=== PATIENT | female | born 1965 | race American Indian/Alaskan Native ===

== ENCOUNTER 2016-12-06 23:29 | Emergency (ER) | payer OTHER ==
[2016-12-06 23:29] VITALS: BMI 36.6
[2016-12-07] MEDS ORDERED: Sodium Chloride 0.9% 1,000 ML IV ONE (00:02)
[2016-12-07] MEDS ORDERED: Morphine 4 MG/ML VIAL IV STA (00:02)
[2016-12-07] MEDS ORDERED: Albuterol-Ipratrop 3 mg / 0.5 (3 ml) UD INH STA (00:03)
[2016-12-07 00:22] LABS: BASO % 0.8 % (0.0-2.0); EOS # 0.1 K/uL (0.0-0.7); EOS % 1.5 % (0.0-4.0); HEMOGLOBIN 12.6 g/dL (11.0-16.0); LYMPH # 1.1 K/uL (1.0-4.3); LYMPH % 19.1 % (20.0-40.0); MEAN CELL VOLUME 89.7 fL (81.0-99.0); MEAN CORPUSCULAR HGB CONC 33.5 g/dL (33.0-37.0); MEAN PLATELET VOLUME 7.6 fL (7.2-11.7); MONO # 0.3 K/uL (0.0-0.8); NEUT # 4.4 K/uL (1.8-7.0); NEUT % 73.6 % (50.0-75.0); RBC 4.19 Mil/uL (3.80-5.20); RED CELL DISTRIBUTION WIDTH 15.4 % (11.5-14.5)
[2016-12-07] MEDS ORDERED: Sodium Chloride 0.9% 1,000 ML ONE (00:27)
[2016-12-07] MEDS ORDERED: Morphine 4 MG/ML VIAL ONE ×2 (00:27→00:30)
[2016-12-07 00:40] LABS: ALB/GLOB RATIO 1.3 (1.0-2.1); ALBUMIN 3.5 g/dL (3.5-5.0); ALT/SGPT 32 U/L (9-52); AST/SGOT 19 U/L (14-36); BLOOD UREA NITROGEN 11 mg/dL (7-17); CALCIUM 8.5 mg/dl (8.6-10.4); GFR AFRICAN-AMERICAN > 60; GFR NON-AFRICAN AMERICAN > 60
--- NOTE | 2016-12-07 01:51 | C.PDOC ---
History Of Present Illness A 51 y/o F c/o right sided chest pain for the past 3 days. Pt had a lobectomy done to the right lung area. Pain has been worse over the past few days and worsens with breathing and movement. Denies fever, chills, SOB, nausea, vomiting , diaphoresis, lightheadedness, abdominal pain, or any other complaints. Time Seen by Provider: 12/07/16 01:49 Chief Complaint (Nursing): Chest Pain History Per: Patient History/Exam Limitations: no limitations Onset/Duration Of Symptoms: Days Current Symptoms Are (Timing): Still Present Severity: Mild Quality: "Pain" Exacerbating Factors: Movement, Deep Breathing Recent travel outside of the [place]: No Additional History Per: Patient Past Medical History Reviewed: Historical Data, Nursing Documentation, Vital Signs Vital Signs: Last Vital Signs Temp 97.9 F 12/06/16 23:40 Pulse 85 12/07/16 01:20 Resp 20 12/07/16 01:20 BP 134/69 12/07/16 01:20 Pulse Ox 121 H 12/07/16 01:58 - Medical History PMH: Arthritis, Asthma, Bipolar Disorder, COPD, Emphysema, Fractures (r ankle casted), HTN, Pneumonia, Pulmonary Embolism, Schizophrenia, Sleep Apnea (no c pap) Denies: Chronic Kidney Disease Surgical History: - [facility] Procedures BEAM RADIATION OF CHEST USING PHOTONS 1 - 10 MEV (05/03/16) BEAM RADIATION OF LUNG USING PHOTONS 1 - 10 MEV (04/16/16) C.A.T. SCAN OF THORAX (07/20/14) CLOSED [PERCUTANEOUS] [NEEDLE] BIOPSY OF LUNG (07/20/14) ENDOSCOPIC BRONCHIAL BX (08/23/14) EXCISION OF R UP LEG SUBCU/FASCIA, OPEN APPROACH (05/03/16) INJECT ANTICOAGULANT (02/09/15) INJECT/INFUSE NEC (01/23/15) INSERTION OF TOTALLY IMPLANTABLE VASC ACCESS DEVIC (11/15/14) INTRODUCE OF OTH THERAP SUBST INTO RESP TRACT, VIA OPENING (06/12/16) LAPAROSCOPIC ROBOTIC ASSISTED PROCEDURE (09/21/14) LYMPHATIC STRUCT BIOPSY (09/21/14) NEBULIZER THERAPY (02/09/15) THORACOSCOPIC LOBECTOMY OF LUNG (09/21/14) THORAX SFT TISS XRAY NEC (11/15/14) Family History: States: Unknown Family Hx - Social History Hx Tobacco Use: No Hx Alcohol Use: No Hx Substance Use: No - Immunization History Hx Tetanus Toxoid Vaccination: No Hx Influenza Vaccination: Yes Hx Pneumococcal Vaccination: Yes Review Of Systems Except As Marked, All Systems Reviewed And Found Negative. Constitutional: Negative for: Fever, Chills, Sweats Cardiovascular: Positive for: Chest Pain. Negative for: Light Headedness Respiratory: Negative for: Shortness of Breath Gastrointestinal: Negative for: Nausea, Vomiting, Abdominal Pain Physical Exam - Physical Exam Appears: Non-toxic, In Acute Distress (Due to pain) Skin: Warm, Dry Head: Atraumatic, Normacephalic Cardiovascular: Rhythm Regular Respiratory: Decreased Breath Sounds (Right lower lung), No Accessory Muscle Use , No Rales, No Rhonchi, No Wheezing Gastrointestinal/Abdominal: Soft, No Tenderness Back: No CVA Tenderness Extremity: Normal ROM, No Tenderness, Capillary Refill (<2secs) Neurological/Psych: Oriented x3, Normal Speech, Normal Cognition ED Course And Treatment - Laboratory Results Result Diagrams: 12/07/16 00:18 12/07/16 00:18 O2 Sat by Pulse Oximetry: 121 (Nebulizer treatment) Pulse Ox Interpretation: Normal Medical Decision Making Medical Decision Making: Impression: A 51 y/o F c/o right sided chest pain for the past 3 days. Plans: -CT chest w/o -EKG -Albuterol -Morphine -IV fluids -Nebulizer treatment Disposition Counseled Patient/Family Regarding: Diagnosis - Disposition Referrals: Efrain Barrera MD [Staff Provider] - Disposition: HOME/ ROUTINE Disposition Time: 03:05 Condition: IMPROVED Instructions: Thoracic Pain (ED) - POA Present On Arrival: None - Clinical Impression Clinical Impression: Thoracic back pain - Scribe Statement The provider has reviewed the documentation as recorded by the Scribe Aditi Allred All medical record entries made by the Scribe were at my direction and personally dictated by me. I have reviewed the chart and agree that the record accurately reflects my personal performance of the history, physical exam, medical decision making, and the department course for this patient. I have also personally directed, reviewed, and agree with the discharge instructions and disposition.
--- NOTE | 2016-12-07 10:08 | CT ---
PROCEDURE: CT Chest without contrast HISTORY: chest pain. History of lung cancer on the right side COMPARISON: None. TECHNIQUE: Contiguous axial images were obtained through the chest without intravenous contrast enhancement. Sagittal and coronal reconstructions were performed. Radiation dose (DLP): 860.69 mGy-cm. This CT exam was performed using one or more of the following dose reduction techniques: Automated exposure control, adjustment of the mA and/or kV according to patient size, and/or use of iterative reconstruction technique. FINDINGS: LUNGS: Reticular opacities seen at the medial aspect of the right lung likely represent post treatment/fibrotic changes associated with focal bronchiectasis. Moderate emphysematous changes more prominent at the upper lobes MEDIASTINUM: Unremarkable thoracic aorta. No aneurysm. Normal sized heart. The main pulmonary artery is mildly enlarged. No lymphadenopathy. PLEURA: No pleural fluid. No pneumothorax. BONES: No fracture. No destructive lesion. UPPER ABDOMEN: Grossly unremarkable. OTHER FINDINGS: None. IMPRESSION: Focal reticular and reticulonodular opacities at the medial aspect of the right lung associated with bronchiectasis likely represent fibrotic and posttraumatic changes. Correlation with prior study is suggested. If clinically warranted interval follow-up reassessment or further evaluation by PET-CT may be obtained. [id number] emphysema. Preliminary report was submitted by [facility] Rad[facility].
[2016-12-07 12:19] VITALS: BP 122/65; PULSE 75; RESP 18; TEMP 97.9; O2SAT 99
--- NOTE | 2016-12-09 12:45 | CARD ---
APPROVED REPORT EKG Measurement Heart [id number] [place] [id number] [id number] <Conclusion> Sinus tachycardia Otherwise normal ECG
== END 2016-12-07 03:23 | disposition home or self-care (01) ==
LOC: C.ER 23:29
DX: M54.6 Pain in thoracic spine (principal)
CPT/HCPCS: 71250; 80053; 84484; 85025; 85378; 93005; 94640; 96374; 96375; 99284; J1170; J2270; J7040

== ENCOUNTER 2016-12-08 12:25 | Emergency (ER) | payer OTHER ==
[2016-12-08 12:25] VITALS: BMI 36.6
[2016-12-08 12:50] VITALS: BP 91/59; PULSE 96; RESP 24; TEMP 98; O2SAT 100
[2016-12-08] MEDS ORDERED: Oxycodone/Acetaminophen 5/325 mg Tab PO STA (13:07)
[2016-12-08] MEDS ORDERED: Oxycodone/Acetaminophen 5/325 mg Tab ONE (13:17)
--- NOTE | 2016-12-08 13:21 | C.PDOC ---
History Of Present Illness 51 y/o female presents to ED seeking narcotics for her chronic right posterior thoracic back pain. Patient claims her pain is related to right lobectomy for lung cancer, and states she takes Dilaudid, and Percocet for her pain. Otherwise , denies any fever, chills, shortness of breath, nausea, vomiting, abdominal pain, or any other complaints at this time. Time Seen by Provider: 12/08/16 12:58 Chief Complaint (Nursing): Chest Pain History Per: Patient History/Exam Limitations: no limitations Onset/Duration Of Symptoms: Days Current Symptoms Are (Timing): Still Present Recent travel outside of the [place]: No Additional History Per: Patient Past Medical History Reviewed: Historical Data, Nursing Documentation, Vital Signs Vital Signs: Last Vital Signs Temp 98.0 F 12/08/16 12:36 Pulse 96 H 12/08/16 12:36 Resp 24 12/08/16 12:36 BP 91/59 L 12/08/16 12:36 Pulse Ox 100 12/08/16 15:06 - Medical History PMH: Arthritis, Asthma, Bipolar Disorder, COPD, Emphysema, Fractures (r ankle casted), HTN, Pneumonia, Pulmonary Embolism, Schizophrenia, Sleep Apnea (no c pap) Denies: Chronic Kidney Disease Surgical History: - [facility] Procedures BEAM RADIATION OF CHEST USING PHOTONS 1 - 10 MEV (05/03/16) BEAM RADIATION OF LUNG USING PHOTONS 1 - 10 MEV (04/16/16) C.A.T. SCAN OF THORAX (07/20/14) CLOSED [PERCUTANEOUS] [NEEDLE] BIOPSY OF LUNG (07/20/14) ENDOSCOPIC BRONCHIAL BX (08/23/14) EXCISION OF R UP LEG SUBCU/FASCIA, OPEN APPROACH (05/03/16) INJECT ANTICOAGULANT (02/09/15) INJECT/INFUSE NEC (01/23/15) INSERTION OF TOTALLY IMPLANTABLE VASC ACCESS DEVIC (11/15/14) INTRODUCE OF OTH THERAP SUBST INTO RESP TRACT, VIA OPENING (06/12/16) LAPAROSCOPIC ROBOTIC ASSISTED PROCEDURE (09/21/14) LYMPHATIC STRUCT BIOPSY (09/21/14) NEBULIZER THERAPY (02/09/15) THORACOSCOPIC LOBECTOMY OF LUNG (09/21/14) THORAX SFT TISS XRAY NEC (11/15/14) Family History: States: Unknown Family Hx - Social History Hx Tobacco Use: No Hx Alcohol Use: No Hx Substance Use: No - Immunization History Hx Tetanus Toxoid Vaccination: Yes Hx Influenza Vaccination: Yes Hx Pneumococcal Vaccination: Yes Review Of Systems Except As Marked, All Systems Reviewed And Found Negative. Constitutional: Negative for: Fever, Chills Cardiovascular: Positive for: Chest Pain (right ). Negative for: Palpitations, Edema, Light Headedness Respiratory: Negative for: Cough, Shortness of Breath Gastrointestinal: Negative for: Nausea, Vomiting, Abdominal Pain Musculoskeletal: Positive for: Back Pain (right upper) Neurological: Negative for: Weakness, Numbness, Headache, Dizziness Physical Exam - Physical Exam Appears: Non-toxic, No Acute Distress, Other (Argumentative, threatening, illogical) Skin: Normal Color, Warm, Dry Head: Atraumatic, Normacephalic Eye(s): bilateral: Other (pinpoint pupils) Neck: Normal ROM, Supple Chest: Symmetrical, No Other (no scars or evidence consistent with lobectomy) Cardiovascular: Rhythm Regular Respiratory: Normal Breath Sounds, No Rales, No Rhonchi, No Wheezing Gastrointestinal/Abdominal: Soft, No Tenderness Back: No Vertebral Tenderness, Paraspinal Tenderness (right thoracic) Neurological/Psych: Oriented x3, Normal Speech ED Course And Treatment O2 Sat by Pulse Oximetry: 100 Pulse Ox Interpretation: Normal Medical Decision Making Medical Decision Making: Chronic R back pain is digitally reproducable, seems unrelated to R lobectomy for ? lung CA, performed @ unknown time. no zoster, no incisional wound nor cellulitis found nor local infection noted. 12/06/16: "normal w/u" including labs, CT @ [place] and our ED later that same day. Pt does not allow proper exam of R thorax for ? reason. Pinpoint pupils suggest current narcotics use, but pt denies. pt pending Chronic Pain eval/treatment but does not know who or when. h/o bipolar disorder, heroine and cocaine addiction and refused refills by PMD and Heme/Onc Seen and evaled as drug seeking behavior @ [place] ED 12/06, (demanding Dilaudid ) pt eloped (no apparent pain) [place] [facility] reviewed, 10 prescribers for 28 prescriptions in a wide geographical distribution and offers poor follow-up and ? drug seeking behavior- required to be reported to [place] [employer]. Though in "severe" pain, pt argumentative, letigious, manipulative to try to get prescribed narcotics from dealing with our Social workers, demanding to have another ER doctor, always seemingly in no apparent R thorax pain. Extensive attempts to explain ED unable to refill chronic pain meds, with poor insight. Pt left ED refusing Percocet offered, foul mouthed and verbally abusive, yelling loudly, apparently minimal R chest discomfort. Above comments paraphrased and referred to [facility] by email for review, per current protocol Disposition Doctor Will See Patient In The: Office Counseled Patient/Family Regarding: Studies Performed, Diagnosis - Disposition Referrals: Rebecca Bravo MD [Non-Staff] - Disposition: HOME/ ROUTINE Disposition Time: 13:21 Condition: GOOD Additional Instructions: seek chronic pain eval as already scheduled The ER may NOT refill chronic controlled pain meds Your atypical drug prescribing practices will be reported to [facility] of Consumer Affairs. Instructions: Chronic Pain (ED), Narcotic Abuse (ED), Bipolar Disorder (ED) - Clinical Impression Clinical Impression: Chronic pain, Bipolar disorder, Drug-seeking behavior - Scribe Statement The provider has reviewed the documentation as recorded by the Scribe Brodie Del Angel All medical record entries made by the Scribe were at my direction and personally dictated by me. I have reviewed the chart and agree that the record accurately reflects my personal performance of the history, physical exam, medical decision making, and the department course for this patient. I have also personally directed, reviewed, and agree with the discharge instructions and disposition.
--- NOTE | 2016-12-09 12:44 | CARD ---
APPROVED REPORT EKG Measurement Heart [id number] 134P71 [id number] <Conclusion> Normal sinus rhythm Normal ECG
== END 2016-12-08 13:30 | disposition home or self-care (01) ==
LOC: C.ER 12:25
DX: G89.29 Other chronic pain (principal); F31.9 Bipolar disorder, unspecified; Z76.5 Malingerer [conscious simulation]

== ENCOUNTER 2017-01-07 14:18 | Emergency (ER) | payer MEDICAID, OTHER ==
[2017-01-07 14:19] VITALS: BMI 36.9
[2017-01-07 14:32] VITALS: TEMP 98.2
--- NOTE | 2017-01-07 15:07 | C.PDOC ---
History Of Present Illness Patient presents to ED c/o chronic right sided chest pain (x2 yrs, after lobectomy), and recently worsening left sided chest pain. Patient states she has h/o lung CA s/p lobectomy (2014) by Dr. Cruz, with chemo. She also state she was recently diagnosed with left sided PE x2, currently on Coumadin. She denies fever, cough, abdominal pain, SOB, and admits this pain is same as previous pain, and that she has previously taking narcotic pain medication. She states her PMD Dr. Mccain and Hem/Onc Dr. Barrera will not give her pain medication anymore. Patient has made appointment with pain management Dr. James , but states it is only in mid January. Patient has appointment with Dr. Barrera tomorrow, states she was told she may also have malignancy in her esophagus. Time Seen by Provider: 01/07/17 14:33 Chief Complaint (Nursing): Chest Pain History Per: Patient History/Exam Limitations: no limitations Onset/Duration Of Symptoms: Persistent Current Symptoms Are (Timing): Still Present Severity: Moderate Quality: Sharp Exacerbating Factors: Movement, Deep Breathing Past Medical History Reviewed: Historical Data, Nursing Documentation, Vital Signs Vital Signs: Last Vital Signs Temp 98.2 F 01/07/17 14:28 Pulse 79 01/07/17 17:09 Resp 16 01/07/17 17:09 BP 124/95 H 01/07/17 17:09 Pulse Ox 100 01/07/17 17:12 - Medical History PMH: Arthritis, Asthma, Bipolar Disorder, COPD, Emphysema, Fractures (r ankle casted), HTN, Malignancy (lung CA s/op lobectomy and chemo (2014)), Pneumonia, Pulmonary Embolism, Schizophrenia, Sleep Apnea (no c pap) Surgical History: Other Surgeries: right sided lobectomy - [facility] Procedures BEAM RADIATION OF CHEST USING PHOTONS 1 - 10 MEV (05/03/16) BEAM RADIATION OF LUNG USING PHOTONS 1 - 10 MEV (04/16/16) C.A.T. SCAN OF THORAX (07/20/14) CLOSED [PERCUTANEOUS] [NEEDLE] BIOPSY OF LUNG (07/20/14) ENDOSCOPIC BRONCHIAL BX (08/23/14) EXCISION OF R UP LEG SUBCU/FASCIA, OPEN APPROACH (05/03/16) INJECT ANTICOAGULANT (02/09/15) INJECT/INFUSE NEC (01/23/15) INSERTION OF TOTALLY IMPLANTABLE VASC ACCESS DEVIC (11/15/14) INTRODUCE OF OTH THERAP SUBST INTO RESP TRACT, VIA OPENING (06/12/16) LAPAROSCOPIC ROBOTIC ASSISTED PROCEDURE (09/21/14) LYMPHATIC STRUCT BIOPSY (09/21/14) NEBULIZER THERAPY (02/09/15) THORACOSCOPIC LOBECTOMY OF LUNG (09/21/14) THORAX SFT TISS XRAY NEC (11/15/14) Family History: States: No Known Family Hx - Social History Hx Tobacco Use: No Hx Alcohol Use: No Hx Substance Use: No - Immunization History Hx Tetanus Toxoid Vaccination: Yes Hx Influenza Vaccination: Yes Hx Pneumococcal Vaccination: Yes Review Of Systems Except As Marked, All Systems Reviewed And Found Negative. Constitutional: Negative for: Fever, Chills Cardiovascular: Positive for: Chest Pain. Negative for: Palpitations Respiratory: Negative for: Cough, Shortness of Breath Gastrointestinal: Negative for: Nausea, Vomiting, Abdominal Pain Skin: Negative for: Rash Physical Exam - Physical Exam Appears: Non-toxic, In Acute Distress (in moderate pain, anxious appearing ) Skin: Warm, Dry, No Rash Oral Mucosa: Moist Chest: Symmetrical, Tenderness (right sided lateral chest TTP, without rashes/ erythema) Cardiovascular: Rhythm Regular Respiratory: Normal Breath Sounds, No Rales, No Rhonchi, No Wheezing Gastrointestinal/Abdominal: Normal Exam, Bowel Sounds, Soft, No Tenderness, Other (obese) Extremity: Normal ROM, No Pedal Edema, No Calf Tenderness ED Course And Treatment - Laboratory Results Result Diagrams: 01/07/17 15:16 01/07/17 15:16 ECG: Interpreted By Me, Viewed By Me (NSR 94 bpm, normal axis, no acute ST/T wave changes) ECG Interpretation: Normal O2 Sat by Pulse Oximetry: 100 (RA) Pulse Ox Interpretation: Normal - Radiology CXR: Interpreted by Me, Viewed By Me CXR Interpretation: Yes: No Acute Disease. No: Infiltrates Progress Note: Blood work, CXR, EKG ordered and reviewed. Patient given IV morphine. Will discuss with PMD. Reevaluation Time: 17:10 Reassessment Condition: Improved (On reassessment, patient states she is feeling better. Explained to patient that I will give her Rx for pain medication, however she needs to obtain future pain meds/narcotics from pain managment and will not be getting them from the ER in the future. Patient has scheduled appt with Dr. Barrera tomorrow, which she was instructed to keep. She understands she should return to ER if symptoms worsen.) - Physician Consult Information Physician Contacted: Efrain Barrera Outcome Of Conversation: Dicussed patient with Dr. Barrera, she is well known to him. Patient has h/o chronic pain, used to get MS contin from him however he now does not give out narcotics and was reffered to pain management. She recently had (+) mediastinal LNs for lung CA, has scheduled appointment with him in the office tomorrow. He states she has known h/o PE diagnosed approx 1 year ago, and that she has been on Coumadin for this, however repeated has low INR - he suspects due to Coumadin noncompliance. As per him, patient also apparently in [facility] earlier today with same symptoms. Medical Decision Making Medical Decision Makin12/30/2016 1 12/29/2016 OXYCODONE HCL 30 MG TABLET 12.0 3 JA [facility] [id number] CAREP ([id number]) 0 180.0 [place] 12/23/2016 1 12/21/2016 OXYCODONE HCL 30 MG TABLET 10.0 5 PE KOC [id number] CAREP ([id number]) 0 90.0 [place] 12/18/2016 1 12/18/2016 ZOLPIDEM TARTRATE 5 MG TABLET 15.0 15 MA SELENA [id number] CAREP ([id number]) 0 [place] 12/09/2016 1 12/08/2016 OXYCODONE HCL 30 MG TABLET 20.0 5 SA ACH [id number] CAREP ([id number]) 0 180.0 [place] 12/02/2016 1 12/01/2016 OXYCODONE HCL 30 MG TABLET 20.0 4 MA DEL [id number] CAREP ([id number]) 0 225.0 [place] 11/15/2016 1 11/11/2016 OXYCODONE HCL 10 MG TABLET 120.0 30 SA PAR [id number] CAREP ([id number]) 0 60.0 [place] 11/08/2016 1 11/08/2016 OXYCODONE HCL 30 MG TABLET 18.0 5 YO POLLO [id number] CAREP ([id number]) 0 162.0 [place] 10/25/2016 1 10/02/2016 PROMETHAZINE-CODEINE SYRUP 240.0 12 MA SELENA [id number] CAREP ([id number]) 1 6.0 [place] 10/25/2016 1 10/17/2016 OXYCODONE HCL 15 MG TABLET 20.0 5 SA ACH [id number] CAREP ([id number]) 0 90.0 [place] 10/02/2016 1 10/02/2016 PROMETHAZINE-CODEINE SYRUP 240.0 12 MA SELENA [id number] CAREP ([id number]) 0 6.0 Private [place] 09/27/2016 1 09/19/2016 OXYCODONE HCL 15 MG TABLET 120.0 30 AD EMILIA [id number] CAREP ([id number]) 0 90.0 [place] 08/28/2016 1 08/27/2016 OXYCODONE HCL 15 MG TABLET 90.0 30 MA BURAK [id number] CAREP ([id number]) 0 67.5 [place] 07/18/2016 1 07/18/2016 OXYCODONE HCL 30 MG TABLET 120.0 20 MA SLEENA [id number] CAREP ([id number]) 0 270.0 [place] 07/03/2016 1 03/28/2016 PROMETHAZINE-CODEINE SYRUP 240.0 10 MA SELENA [id number] CAREP ([id number]) 3 7.2 [place] 06/20/2016 1 06/20/2016 OXYCODONE HCL 30 MG TABLET 120.0 20 MA SELENA [id number] CAREP ([id number]) 0 270.0 [place] 06/06/2016 1 03/28/2016 PROMETHAZINE-CODEINE SYRUP 240.0 10 MA SELENA [id number] CAREP ([id number]) 2 7.2 [place] 06/06/2016 1 06/06/2016 OXYCODONE HCL 30 MG TABLET 80.0 14 MA SELENA [id number] CAREP ([id number]) 0 257.143 Comm [place] Disposition Counseled Patient/Family Regarding: Studies Performed, Diagnosis, Need For Followup, Rx Given - Disposition Referrals: Paty Mccain [Medical Doctor] - Efrain Barrera MD [Staff Provider] - Disposition: HOME/ ROUTINE Disposition Time: 17:10 Condition: STABLE Additional Instructions: FOLLOW UP WITH DR BARRERA IN THE OFFICE TOMORROW USE PAIN MEDICATION NEEDED. IN THE FUTURE YOU NEED TO OBTAIN YOUR PAIN MEDICATION FROM PAIN MANAGEMENT OR PRIVATE DOCTOR PER OUR PAIN POLICY TAKE YOUR COUMADIN DAILY INSTRUCTED RETURN TO ER IF SYMPTOMS WORSEN Prescriptions: oxyCODONE/Acetaminophen [Percocet 5/325 mg Tab] 1 tab PO QID PRN #12 tab PRN Reason: Pain Instructions: Chronic Pain (ED), Chest Wall Pain (ED) Forms: Cody (Korean) Print Language: BOLIVIAN - POA Present On Arrival: None - Clinical Impression Clinical Impression: Chest pain, non-cardiac, Chronic pain, Chronic pulmonary embolism
[2017-01-07 15:24] LABS: BASO # 0.1 K/uL (0.0-0.2); BASO % 1.3 % (0.0-2.0); EOS # 0.1 K/uL (0.0-0.7); EOS % 2.4 % (0.0-4.0); LYMPH # 1.1 K/uL (1.0-4.3); MEAN CORPUSCULAR HEMOGLOBIN 29.8 pg (27.0-31.0)
[2017-01-07] MEDS ORDERED: Morphine 4 MG/ML VIAL ONE (15:24)
[2017-01-07 15:31] LABS: HEMATOCRIT 38.4 % (34.0-47.0); LYMPH % 25.8 % (20.0-40.0); MEAN CORPUSCULAR HGB CONC 34.2 g/dL (33.0-37.0); MEAN PLATELET VOLUME 7.1 fL (7.2-11.7); MONO # 0.4 K/uL (0.0-0.8); MONO % 9.4 % (0.0-10.0); NRBC % 0.2 % (0.0-2.0); RED CELL DISTRIBUTION WIDTH 14.4 % (11.5-14.5); WHITE BLOOD COUNT 4.1 K/uL (4.8-10.8)
[2017-01-07 15:32] LABS: CHLORIDE 106 mmol/L (98-107); INR 1.5; POTASSIUM 3.5 mmol/L (3.6-5.2); SODIUM 142 mmol/L (132-148)
[2017-01-07 15:34] LABS: AST/SGOT 19 U/L (14-36); BILIRUBIN,TOTAL 0.6 mg/dL (0.2-1.3); CARBON DIOXIDE 25 mmol/L (22-30); GFR AFRICAN-AMERICAN > 60
[2017-01-07 15:35] LABS: ALB/GLOB RATIO 1.3 (1.0-2.1); ALKALINE PHOSPHATASE 70 U/L (38-126); ALT/SGPT 34 U/L (9-52); BLOOD UREA NITROGEN 10 mg/dL (7-17); GLUCOSE,RANDOM 76 mg/dL (65-105); TOTAL PROTEIN 6.2 g/dL (6.3-8.3)
[2017-01-07] MEDS ORDERED: HYDROmorphone 1 mg/ml ISec IVP STA (16:05)
[2017-01-07] MEDS ORDERED: DiphenhydrAMINE 50 mg/ml Inj IVP STA (16:05)
[2017-01-07] MEDS ORDERED: DiphenhydrAMINE 50 mg/ml Inj ONE (16:09)
--- NOTE | 2017-01-07 16:16 | RAD ---
PROCEDURE: CHEST RADIOGRAPH, 1 VIEW. Technique: Portable study performed @ 15:33. HISTORY: Chest pain. COMPARISON: 03/05/2016. FINDINGS: LUNGS: Clear. PLEURA: No pneumothorax or pleural fluid seen. CARDIOVASCULAR: No radiographic findings to suggest acute or significant cardiovascular disease. OSSEOUS STRUCTURES: No significant abnormalities. VISUALIZED UPPER ABDOMEN: Normal. OTHER FINDINGS: None. IMPRESSION: No active disease. No acute/significant interval changes.
[2017-01-07 17:09] VITALS: BP 124/95; PULSE 79; RESP 16
[2017-01-07 17:11] VITALS: O2SAT 100
--- NOTE | 2017-01-08 18:02 | CARD ---
APPROVED REPORT EKG Measurement Heart [id number] [place] 132P75 [id number] <Conclusion> Normal sinus rhythm Normal ECG
== END 2017-01-07 17:30 | disposition home or self-care (01) ==
LOC: C.ER 14:18
DX: R07.89 Other chest pain (principal); G89.29 Other chronic pain; I27.82 Chronic pulmonary embolism
CPT/HCPCS: 71010; 80053; 82550; 82553; 84484; 85025; 85610; 85730; 93005; 96374; 96375; 99285; J1170; J1200; J2270

== ENCOUNTER 2017-02-05 11:36 | Emergency (ER) | payer MEDICAID, OTHER ==
[2017-02-05] MEDS ORDERED: Albuterol-Ipratrop 3 mg / 0.5 (3 ml) UD ONE ×2 (11:43→13:08)
[2017-02-05 11:47] VITALS: BMI 36.3
[2017-02-05 12:05] VITALS: TEMP 98.9; O2SAT 97
[2017-02-05 12:12] LABS: BASO # 0.1 K/uL (0.0-0.2); EOS # 0.2 K/uL (0.0-0.7); HEMATOCRIT 47.2 % (34.0-47.0); LYMPH # 1.8 K/uL (1.0-4.3); LYMPH % 23.2 % (20.0-40.0); MEAN CELL VOLUME 88.4 fL (81.0-99.0); MEAN CORPUSCULAR HEMOGLOBIN 29.7 pg (27.0-31.0); MEAN CORPUSCULAR HGB CONC 33.6 g/dL (33.0-37.0); MONO # 0.7 K/uL (0.0-0.8); MONO % 8.5 % (0.0-10.0); RED CELL DISTRIBUTION WIDTH 14.5 % (11.5-14.5); WHITE BLOOD COUNT 7.7 K/uL (4.8-10.8)
[2017-02-05] MEDS ORDERED: Albuterol-Ipratrop 3 mg / 0.5 (3 ml) UD IH SCH (12:15)
[2017-02-05 12:21] LABS: BLOOD UREA NITROGEN 10 mg/dL (7-17); CALCIUM 9.9 mg/dl (8.6-10.4); CARBON DIOXIDE 29 mmol/L (22-30); CHLORIDE 100 mmol/L (98-107); GFR AFRICAN-AMERICAN > 60; GLUCOSE,RANDOM 73 mg/dL (65-105); POTASSIUM 4.2 mmol/L (3.6-5.2); SODIUM 144 mmol/L (132-148); TOTAL PROTEIN 7.3 g/dL (6.3-8.3)
[2017-02-05 12:22] LABS: ALB/GLOB RATIO 1.4 (1.0-2.1); ALKALINE PHOSPHATASE 72 U/L (38-126); ALT/SGPT 34 U/L (9-52); AST/SGOT 18 U/L (14-36); BILIRUBIN,TOTAL 0.4 mg/dL (0.2-1.3)
[2017-02-05 12:28] LABS: INR 1.7
[2017-02-05 12:41] VITALS: RESP 17
--- NOTE | 2017-02-05 12:55 | C.PDOC ---
History Of Present Illness 51 year old female with a history of lung CA and right sided lobectomy 2 years ago was brought to the ED by EMS with complaints of right chest and right flank pain. Patient has been seen in the ED previously for chronic pain and notes she has been on narcotics for pain since the lobectomy and states medicine is not working. Upon arrival to ED, patient appears to be in respiratory distress, diaphoretic, and agitated. Patient was immediately placed on nasal cannula and started on duoneb. Time Seen by Provider: 02/05/17 11:41 Chief Complaint (Nursing): Shortness Of Breath History Per: Patient History/Exam Limitations: no limitations Onset/Duration Of Symptoms: Hrs, Intermittent Episodes Current Symptoms Are (Timing): Still Present Quality: Sharp (and constant ) Severity: Severe Pain Scale Rating Of: 10 Associated Symptoms: Sweating, Chest Pain. denies: Fever, Chills Reports Recently: Seen In ED Recent travel outside of the [place]: No Past Medical History Reviewed: Historical Data, Nursing Documentation, Vital Signs Vital Signs: Last Vital Signs Temp 98.9 F 02/05/17 11:43 Pulse 87 02/05/17 12:40 Resp 17 02/05/17 12:40 BP 127/72 02/05/17 12:40 Pulse Ox 97 02/05/17 13:46 - Medical History PMH: Arthritis, Asthma, Bipolar Disorder, COPD, Emphysema, Fractures (r ankle casted), HTN, Malignancy (lung CA s/op lobectomy and chemo (2014)), Pneumonia, Pulmonary Embolism, Schizophrenia, Sleep Apnea (no c pap) Surgical History: - [facility] Procedures BEAM RADIATION OF CHEST USING PHOTONS 1 - 10 MEV (05/03/16) BEAM RADIATION OF LUNG USING PHOTONS 1 - 10 MEV (04/16/16) C.A.T. SCAN OF THORAX (07/20/14) CLOSED [PERCUTANEOUS] [NEEDLE] BIOPSY OF LUNG (07/20/14) ENDOSCOPIC BRONCHIAL BX (08/23/14) EXCISION OF R UP LEG SUBCU/FASCIA, OPEN APPROACH (05/03/16) INJECT ANTICOAGULANT (02/09/15) INJECT/INFUSE NEC (01/23/15) INSERTION OF TOTALLY IMPLANTABLE VASC ACCESS DEVIC (11/15/14) INTRODUCE OF OTH THERAP SUBST INTO RESP TRACT, VIA OPENING (01/18/17) LAPAROSCOPIC ROBOTIC ASSISTED PROCEDURE (09/21/14) LYMPHATIC STRUCT BIOPSY (09/21/14) NEBULIZER THERAPY (02/09/15) THORACOSCOPIC LOBECTOMY OF LUNG (09/21/14) THORAX SFT TISS XRAY NEC (11/15/14) Family History: States: Unknown Family Hx - Social History Hx Tobacco Use: No Hx Alcohol Use: No Hx Substance Use: No - Immunization History Hx Tetanus Toxoid Vaccination: Yes Hx Influenza Vaccination: No Hx Pneumococcal Vaccination: No Review Of Systems Constitutional: Negative for: Fever, Chills Cardiovascular: Positive for: Chest Pain (right sided ). Negative for: Palpitations Respiratory: Negative for: Cough, Shortness of Breath Gastrointestinal: Positive for: Other (right flank pain ). Negative for: Nausea , Vomiting, Diarrhea Genitourinary: Negative for: Dysuria, Hematuria Neurological: Negative for: Weakness, Numbness, Headache Physical Exam - Physical Exam Appears: Non-toxic, No Acute Distress, Agitated Skin: Warm, Diaphoretic Head: Atraumatic, Normacephalic Eye(s): bilateral: Normal Inspection, PERRL, EOMI Oral Mucosa: Moist Neck: Supple Chest: Symmetrical, No Deformity, Tenderness (right chest tenderness ) Cardiovascular: Rhythm Regular Respiratory: Wheezing (bilaterally ) Gastrointestinal/Abdominal: Soft, No Tenderness, No Distention, No Guarding, No Rebound, Other (Obese abdomen ) Back: Other (right upper back tenderness ) Extremity: Normal ROM, No Tenderness, No Pedal Edema, No Calf Tenderness, Capillary Refill (good capillary refill, less than two seconds ), No Deformity, No Swelling, Other (no pitting edema ) Neurological/Psych: Oriented x3, Normal Speech, Normal Cognition, Normal Motor, Normal Sensation ED Course And Treatment - Laboratory Results Result Diagrams: 02/05/17 12:06 02/05/17 12:06 O2 Sat by Pulse Oximetry: 97 (room air ) - Radiology CXR: Interpreted by Me, Viewed By Me CXR Interpretation: Yes: No Acute Disease Progress Note: EKG and CXR were ordered. Patient was given nebulizer treatments. Medical Decision Making Medical Decision Making: Patient presented via EMD, diaphoretic, wheezing, c/o pain, O2 Sat wnl, CXR same as last one. Patient started on duonebs and high flow nasal canula. Much improved. Patient requesting Dilaudid. I initiated a conversation about our STOP program and that patient recently received Rx for narcotics, This conversation was non accusatory and non judgmental. Without provocation, patient became irate, began removing her cardiac leads and nasal canula, became accusatory of hospital staff and myself. Patient agitated, feels we were accusing her of drug seeking behaviour. Patient left without further management Disposition Counseled Patient/Family Regarding: Studies Performed, Diagnosis, Need For Followup - Disposition Disposition: ELOPEMENT - ER ONLY Disposition Time: 12:56 Condition: FAIR Forms: General Discharge Instructions - Clinical Impression Clinical Impression: Chronic pain - Scribe Statement The provider has reviewed the documentation as recorded by the Scribe Blanka Felix All medical record entries made by the Scribe were at my direction and personally dictated by me. I have reviewed the chart and agree that the record accurately reflects my personal performance of the history, physical exam, medical decision making, and the department course for this patient. I have also personally directed, reviewed, and agree with the discharge instructions and disposition.
[2017-02-05 13:20] VITALS: BP 127/72; PULSE 87
--- NOTE | 2017-02-05 14:08 | RAD ---
PROCEDURE: CHEST RADIOGRAPH, 1 VIEW HISTORY: SOB COMPARISON: Comparison is made to 01/07/2017 FINDINGS: LUNGS: No significant interval change in the lungs noted since the previous exam. Small reticular opacity again identified at the right lower lung. PLEURA: No pneumothorax or pleural fluid seen. CARDIOVASCULAR: Normal. OSSEOUS STRUCTURES: No significant abnormalities. VISUALIZED UPPER ABDOMEN: Normal. OTHER FINDINGS: Left-sided Infusaport is seen in place. IMPRESSION: No active disease. No evidence of new infiltrate or consolidation in the lungs.
--- NOTE | 2017-02-06 12:29 | CARD ---
APPROVED REPORT EKG Measurement Heart [id number] <Conclusion> Sinus tachycardia Biatrial enlargement Abnormal ECG
== END 2017-02-05 13:20 | disposition left against medical advice (07) ==
LOC: C.ER 11:36
DX: G89.29 Other chronic pain (principal)